=== PATIENT | female | born 1965 | race Caucasian/White ===

== ENCOUNTER 2021-07-10 06:24 | Observation (INO) ==
[2021-07-10] MEDS ORDERED: CeFAZolin Syr 2,000MG/20 ML 2,000 MG/20 ML SYRINGE IVPB ONE (06:46)
[2021-07-10] MEDS ORDERED: Ringers Solution, Lactated 1,000 ML IVC SCH ×2 (07:00→14:35)
[2021-07-10] MEDS ORDERED: *HR* OxyCODONE Immed Rel 5 MG TABLET PO PRN (07:09)
[2021-07-10] MEDS ORDERED: Ondansetron 4 MG/2 ML VIAL IVP PRN ×2 (07:09→14:35)
[2021-07-10] MEDS ORDERED: Vancomycin 1,000 MG VIAL ONE (07:13)
[2021-07-10] MEDS ORDERED: *HR* Phenylephrine 10 MG/ML VIAL ONE (07:21)
[2021-07-10] MEDS ORDERED: Lidocaine -MPF 2% 5 ML VIAL ONE (07:21)
[2021-07-10] MEDS ORDERED: *HR* Rocuronium Bromide 50 MG/5 ML VIAL ONE (07:21)
[2021-07-10] MEDS ORDERED: *HR* Succinylcholine 200 MG/10 ML VIAL IVP ONE (07:21)
[2021-07-10] MEDS ORDERED: *HR* Remifentanil 1 MG VIAL IVP ONE ×2 (07:22→09:28)
[2021-07-10] MEDS ORDERED: *HR* Propofol 200 MG/20 ML VIAL IVP ONE (07:22)
[2021-07-10] MEDS ORDERED: *HR* Midazolam HCl 2 MG/2 ML VIAL ONE (07:22)
[2021-07-10] MEDS ORDERED: *HR* FentaNYL (PF) 100 MCG/2 ML VIAL ONE (07:22)
[2021-07-10] MEDS ORDERED: EPHEDrine 50 MG/ML VIAL ONE (07:27)
[2021-07-10] MEDS ORDERED: Polymyxin B Sulfate 500,000 UNIT, Sodium Chloride IRRigation 1,000 ML IR ONE (07:45)
[2021-07-10] MEDS ORDERED: Sugammadex Sodium 200 MG/2 ML VIAL IV ONE (08:15)
[2021-07-10] MEDS ORDERED: *HR* HYDROMORPHONE 2 MG/ML VIAL ONE (10:27)
[2021-07-10] MEDS: *HR* HYDROmorphone PF 0.5 MG/0.5 ML SYRINGE IVP PRN ×4 (11:15→11:37)
[2021-07-10] MEDS ORDERED: *HR* OxyCODONE Immed Rel 5 MG TABLET PO ONE (12:03)
[2021-07-10] MEDS ORDERED: *HR* HYDROmorphone PF 0.5 MG/0.5 ML SYRINGE IVP PRN (13:35)
[2021-07-10] MEDS ORDERED: Acetaminophen IV 1,000 MG/100 ML BAG IVPB ONE (13:37)
[2021-07-10] MEDS ORDERED: Naloxone 0.4 MG/ML INJ IVP PRN (14:35)
[2021-07-10] MEDS ORDERED: Acetaminophen 325 MG TABLET PO PRN (14:35)
[2021-07-10] MEDS ORDERED: SUMAtriptan succinate 50 MG TABLET PO PRN (14:35)
[2021-07-10] MEDS: Gabapentin 300 MG CAPSULE PO SCH ×2 (16:18→19:33)
[2021-07-10] MEDS: CeFAZolin 2 GM/120 ML BAG IVPB SCH ×2 (16:18→23:49)
[2021-07-10] MEDS: *HR* OxyCODONE Immed Rel 5 MG TABLET PO PRN ×2 (19:34→23:46)
[2021-07-10] MEDS: Topiramate 100 MG TABLET PO SCH (20:14)
[2021-07-11] MEDS: *HR* OxyCODONE Immed Rel 5 MG TABLET PO PRN ×5 (03:43→23:30)
[2021-07-11] MEDS: Cyanocobalamin (B-12) 1,000 MCG TABLET PO SCH (07:41)
[2021-07-11] MEDS: Cholecalciferol (D-3) 1,000 UNIT (25MCG) TABLET PO SCH (07:41)
[2021-07-11] MEDS: Topiramate 100 MG TABLET PO SCH ×2 (07:42→19:22)
[2021-07-11] MEDS: Gabapentin 300 MG CAPSULE PO SCH ×3 (07:42→19:22)
[2021-07-11] MEDS ORDERED: Topiramate 100 MG TABLET PO SCH (09:00)
[2021-07-11] MEDS: hydroCHLOROthiazide 25 MG TABLET PO SCH (09:17)
[2021-07-11] MEDS: *HR* HYDROcodone/Acet 5/325 mg TABLET PO PRN ×2 (11:03→19:22)
[2021-07-11] MEDS ORDERED: diazePAM 10 MG/2 ML SYRINGE IVP PRN (22:47)
[2021-07-11] MEDS ORDERED: diazePAM 10 MG TABLET PO PRN (23:28)
[2021-07-12] MEDS: *HR* OxyCODONE Immed Rel 5 MG TABLET PO PRN ×2 (03:35→08:08)
[2021-07-12] MEDS: hydroCHLOROthiazide 25 MG TABLET PO SCH (08:08)
[2021-07-12] MEDS: Gabapentin 300 MG CAPSULE PO SCH (08:08)
[2021-07-12] MEDS: Cholecalciferol (D-3) 1,000 UNIT (25MCG) TABLET PO SCH (08:08)
[2021-07-12] MEDS: Topiramate 100 MG TABLET PO SCH (08:08)
[2021-07-12] MEDS: Cyanocobalamin (B-12) 1,000 MCG TABLET PO SCH (08:08)
[2021-07-12 10:58] VITALS: BP 118/78; PULSE 100; TEMP 98.4; O2SAT 95
== END 2021-07-12 12:01 | disposition home or self-care (01) ==
LOC: 4WAOSI 06:24 → SDCAOSI 06:24 → 4WAOSI 14:51
PROVIDERS: ADMIT Orthopaedic Surgery Orthopaedic Surgery of the Spine; ATTEND Orthopaedic Surgery Orthopaedic Surgery of the Spine